=== PATIENT | male | born 1950 | race Caucasian/White ===

== ENCOUNTER 2020-03-26 16:00 | Emergency (ER) | payer OTHER, MEDICARE ==
--- OUTSIDE RECORDS SUMMARY | 2020-03-26 16:01 | XMS REPORT | Continuity of Care Document ---
:1950 Author Organization [facility] t Address [address] [place] [address] Care Team Providers Name Role Phone Scar Javier MD Attending Clinician Yvon Cox MD Attending Clinician Payers Payer Name Policy Type Policy Number Effective Date Expiration Date S ource Problems This patient has no known problems. Allergies, Adverse Reactions, Alerts Allergy Allergy Status Severity Reaction(s) Onset Inactive Treating Comm ents Source Name Type Date Date Clinician No Known DA Active [facility]ie 10-26 [place] s 00:[facility] Medications This patient has no known medications. Procedures This patient has no known procedures. Encounters Start End Encounter Admission Attending Care Care Encounter Source Date/Time Date/Time Type Type Clinicians Facility Department ID 2019-11-09 2019-11-09 Office TANESHA Javier [id number] 08:14:15 08:58:27 Visit Austen Rojas [id number] Scar Fung [id number] Renee [id number] [address] 2019-07-23 2019-07-23 Office PUSHPA Cox [id number] 08:33:16 09:33:08 Visit Mike Sanz AMBULATOR [id number] Y [id number] Results Test Description Test Time Test Comments Results Result [facility] e Comments - CT ABD PELVIS W 2019-12-17 Patient Name: WO CONT 07:59:00 BRIAN VELAZQUEZ Unit No: [id number] EXAMS: CPT CODE: [id number] CT ABD PELVIS W WO CONT 16135 EXAM: CT ABDOMEN AND PELVIS WITH AND WITHOUT CONTRAST INDICATION: CYST OF KIDNEYS LOCATION: A1 COMPARISON: None TECHNIQUE: CT of the abdomen and pelvis was performed with 90 mL Isovue-370 intravenous contrast. Patient's GFR is greater than 60 with a creatinine of 0.9. All CT scans are performed using radiation dose reduction technique. Technical factors are evaluated and adjusted to insure appropriate moderation of exposure. Automated dose management technology is applied to adjust the radiation dose to minimize exposure while achieving a diagnostic quality image. FINDINGS: Thoracic: Included images of the lower chest demonstrate no abnormalities. Hepatobiliary: No focal liver lesion is identified. No intrahepatic or extrahepatic biliary dilatation is seen. The main portal vein is patent. Gallbladder: The gallbladder is normal. Pancreas: Unremarkable. Spleen: Unremarkable. Adrenals: Unremarkable. Kidneys: There is no evidence of renal calculus. There is no evidence of hydronephrosis of either kidney. Multiple surgical clips are noted at the left renal hilum. A simple cyst seen at the upper pole of the left kidney measuring 1.6 cm. At the upper pole the right kidney there is a cystic lesion which measures 1.6 cm and demonstrates irregular thick calcifications. This lesion shows no measurable enhancement. No additional renal lesions are identified. No filling defects are identified in the renal collecting systems or ureters. Bladder/Reproductive system: Evaluation of the bladder is limited, but no obvious bladder abnormality is present. Coarse calcifications are noted within the prostate. Gastrointestinal: No bowel obstruction or perienteric inflammation. The appendix is normal. Vascular: Atherosclerotic calcifications are seen within the aorta and branch vessels. Name: BRIAN VELAZQUEZ [facility] Phys: Mojgan Ortiz [address] : 1950 Age: 69 Sex: [place] [id number] Loc: [place].TCTS Exam Date: 12/17/2019 Status: REG CLI PH: FAX: PAGE 1 Signed Report (CONTINUED) Patient Name: BRIAN VELAZQUEZ Unit No: [id number] EXAMS: CPT CODE: [id number] CT ABD PELVIS W WO CONT 28625 <Continued> Lymphatics: No enlarged lymph nodes by CT size criteria. Bones/Soft Tissues: No acute osseous findings. No ventral hernias. Peritoneum/Other: No extraluminal air. No extraluminal fluid. IMPRESSION: 1. Cystic lesion at the upper pole the right kidney measuring 1.6 cm with thick irregular calcifications, but no measurable enhancement (Bosniak 2F). Recommend follow-up CT or MRI abdomen in 6 months to assess for any interval growth. 2. Simple cyst at the upper pole the left kidney. (Bosniak 1) at 0759 Reported and signed by: Linda Sutherland M.D. CC: Technologist: Hope Abraham CTDI: 57.29 DLP: 2357.9 Trscr Dt/Tm: 12/17/2019 (0759) by:[email or web address] Electronic Signature Date/Time: 12/17/2019 (075)Orig Print D/T: S: 12/17/2019 (08) Name: BRIAN VELAZQUEZ [facility] Phys: SATKU - Sathyamoorthy,Kumaran [address] : 1950 Age: 69 Sex: [place] [address] Loc: [place].TCTS Exam Date: 12/17/2019 Status: REG CLI PH: FAX: PAGE 2 Signed Report - CT ANGIO CHEST 2019-10-27 Patient Name: 14:24:00 BRIAN VELAZQUEZ Unit No: [id number] EXAMS: CPT CODE: [id number] CT ANGIO CHEST [address]11 CLINICAL HISTORY: TAA. LOCATION: A1 FINDINGS: Following the administration of 90 mL Isovue-370 intravenous contrast, multislice axial images are obtained through the chest during the arterial phase per angiography protocol. Precontrast images are also obtained. Coronal and sagittal reconstructed images are obtained and are used in interpretation. In addition, 3-D reformatted images are performed at the console and used in interpretation. Creatinine is 0.9. GFR is greater than 40. Comparison is made with prior CTA chest without and with contrast dated March 30, 2011 and CTA aorta dated May 05, 2010. Aneurysmal dilatation of the ascending thoracic aorta measuring 4.4 cm AP diameter may be slightly increased in size from the prior study of 2009 (previously measured 4.2 cm). There is mild calcification of the thoracic aorta. No dissection. There is no significant mediastinal adenopathy. There is focal moderate calcification of the left anterior descending coronary artery. Small calcifications within the liver and spleen are consistent with old granulomatous disease. Numerous surgical clips are noted in the region of the left kidney. The kidneys are not completely included on this study. There is a 1.8 cm Bosniak type I cyst at the superior pole left kidney. 1.8 cm cystic lesion at the superior pole right kidney demonstrates thick wall calcification without enhancement. This is smaller compared to the prior studies with new calcification. This is a Bosniak type II F lesion. There is a new 9 mm presumed cyst at the midpole right kidney. No acute skeletal or soft tissue abnormalities. There is mild calcified plaque at the chest apices as well as mild parenchymal scarring at the lung apices. There are no pleural effusions. IMPRESSION: 1. Aneurysmal dilatation of the ascending thoracic aorta measuring 4.4 cm AP diameter may be slightly increased in size from the prior study of 2009 (previously measured 4.2 cm). 2. There is a 1.8 cm Bosniak type II F lesion at the superior pole right kidney. Follow-up CT abdomen without and with contrast in 6 months is recommended. 3. Other benign findings. This exam was performed according to our departmental dose-optimization program, which includes automated exposure control, adjustment of the mA and/or kV according to patient size and/or use of iterative reconstruction technique Name: BRIAN VELAZQUEZ [facility] Phys: [place] [address] : 1950 Age: 69 Sex: [place] [address] Loc: [place].CTSII Exam Date: 10/27/2019 Status: REG CLI PH: FAX: PAGE 1 Signed Report (CONTINUED) Patient Name: BRIAN VELAZQUEZ Unit No: [id number] EXAMS: CPT CODE: [id number] CT ANGIO CHEST 76162 <Continued> at 1424 Reported and signed by: Eric Denney MD CC: No Primary or Family Physician; Ayan Fletcher MD Technologist: Nubia Gonsalves CTDI: 17.48 DLP: 1409.0 Trscr Dt/Tm: 10/27/2019 (1424) by:[email or web address] Electronic Signature Date/Time: 10/27/2019 (142)Orig Print D/T: S: 10/27/2019 (1429) Name: BRIAN VELAZQUEZ [facility] Phys: [place] [address] : 1950 Age: 69 [place]: [place] [id number] Loc: [place].CTSII Exam Date: 10/27/2019 Status: REG CLI PH: FAX: PAGE 2 Signed Report CREATININE POC 2019-10-27 13:06:00 Test Item Value Reference Range Interpretation Comme nts CREATININE POC (test code = CREATP) 0.9 mg/dL 0.6-1.3 N
--- NOTE | 2020-03-26 17:38 | RAD REPORT ---
EXAM DESCRIPTION: RAD - Ankle Left 3 View -03/26/2020 5:23 pm CLINICAL HISTORY: Left ankle pain status post injury FINDINGS: No fracture or dislocation is seen.
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
--- NOTE | 2020-03-26 17:47 | RAD REPORT ---
EXAM DESCRIPTION: Uvaldo Harley Left03/26/2020 5:08 pm CLINICAL HISTORY: Left leg pain status post injury FINDINGS: No fracture is seen
[2020-03-26] MEDS ORDERED: ACETAMINOPHEN 500 MG TAB ONE (17:49)
[2020-03-26] MEDS ORDERED: HYDROCODONE/APAP 7.5/325 MG TAB ONE (17:53)
[2020-03-26 20:10] VITALS: BP 148/99; TEMP 98.5; O2SAT 99
== END 2020-03-26 19:46 | disposition home or self-care (01) ==
LOC: ER 16:00
PROC: 2W3RX1Z Immobilization of Left Lower Leg using Splint (ICD-10-PCS; principal; 2020-03-26)
DX: S82.425A Nondisplaced transverse fracture of shaft of left fibula, initial encounter for closed fracture (principal); V29.40XA Motorcycle driver injured in collision with unspecified motor vehicles in traffic accident, initial encounter; I10 Essential (primary) hypertension
CPT/HCPCS: 99284

== ENCOUNTER 2021-12-08 10:13 | Emergency (ER) | payer OTHER ==
[2021-12-08 11:44] LABS: Absolute Lymphocytes (CBC) 0.7 K/uL (0.7-4.9); Hematocrit 41.9 % (39.6-49.0); Lymphocytes % 13.6 % (15.3-44.8); MCV 89.9 fL (80-100); MPV 8.3 fL (7.6-11.3); RBC Red Blood Cell Count 4.66 M/uL (4.33-5.43)
[2021-12-08] MEDS ORDERED: ACETAMINOPHEN 500 MG TAB ONE (11:48)
--- NOTE | 2021-12-08 11:48 | RAD REPORT ---
EXAM DESCRIPTION: RAD - Chest Pa And Lat (2 Views) - 12/08/2021 11:06 am CLINICAL HISTORY: COUGH COMPARISON: None TECHNIQUE: Frontal and lateral views of the chest were obtained. FINDINGS: The lungs are clear. Mildly prominent interstitial pattern is believed be baseline. No hi la mass or lymphadenopathy identifiable. Heart size is normal and central vasculature is within anabella l limits. No pleural effusion or pneumothorax seen. No acute bony finding noted. No aortic abnorma lity. IMPRESSION: No acute cardiopulmonary process.
[2021-12-08] MEDS ORDERED: NA CHLORIDE 0.9% 1,000 ML ONE (11:49)
[2021-12-08 12:04] LABS: Bilirubin Total 1.2 mg/dL (0.2-1.0); Potassium 3.7 mmol/L (3.5-5.1); Protein, Total 7.3 g/dL (6.4-8.2); Troponin High Sensitivity 28.3 pg/mL (<58.9)
[2021-12-08] MEDS ORDERED: AZITHROMYCIN 250 MG TAB ONE (12:20)
--- NOTE | 2021-12-08 12:39 | ER ---
Nurse's Notes [facility] Name: Lan Bailon Age: 71 yrs Sex: Male : 1950 Arrival Date: 12/08/2021 Time: 10:16 Bed 12 Private MD: Robyn Martines C Diagnosis: Fever, unspecified;Acute upper respiratory infection, unspecified;Coronavirus infection, unspecified;SARS-associated coronavirus as the cause of diseases classified elsewhere Presentation: 12/08 10:36 Chief complaint: Patient states: very dizzy and ,y head is spinning , general weakness iw X 2 days. Coronavirus screen: Client presents with at least one sign or symptom that may indicate coronavirus-19. Ebola Screen: Patient negative for fever greater than or equal to 101.5 degrees Fahrenheit, and additional compatible Ebola Virus Disease symptoms Patient denies exposure to infectious person. Patient denies travel to an Ebola-affected area in the 21 days before illness onset. No symptoms or risks identified at this time. Initial Sepsis Screen: Does the patient meet any 2 criteria? No. Patient's initial sepsis screen is negative. Does the patient have a suspected source of infection? No. Patient's initial sepsis screen is negative. Risk Assessment: Do you want to hurt yourself or someone else? Patient reports no desire to harm self or others. Onset of symptoms was December 05, 2021. 10:36 Method Of Arrival: Ambulatory iw 10:36 Acuity: CRISTINE 3 iw Historical: - Allergies: 10:37 No Known Allergies; iw - PMHx: 10:37 aortic aneurysm; Hypertension; iw - Immunization history:: Client reports having NOT received the Covid vaccine. - Social history:: Smoking status: Patient denies any tobacco usage or history of. - Family history:: not pertinent. Screenin:47 Abuse screen: Denies threats or abuse. Denies injuries from another. Nutritional iw screening: No deficits noted. Tuberculosis screening: No symptoms or risk factors identified. Fall Risk IV access (20 points). Assessment: 11:46 General: Appears in no apparent distress. Behavior is calm, cooperative. General: iw Reports chills for feeling ill for fatigue for. Pain: Complains of pain in b brian aches. Neuro: Level of Consciousness is awake, alert, obeys commands, Oriented to person, place, time, situation, Reports dizziness. Respiratory: Respiratory effort is even, unlabored, Respiratory pattern is regular. Vital Signs: 10:36 BP 106 / 68; Pulse 77; Resp 16; Temp 100.6; Pulse Ox 96% on R/A; iw 11:47 BP 103 / 68; Pulse 64; Resp 16; Pulse Ox 97% on R/A; iw ED Course: 10:16 Patient arrived in ED. mr 10:16 Robyn Martines MD is Private Physician. mr 10:37 Triage completed. iw 10:37 Arm band placed on. iw 10:42 Geronimo Saha MD is Attending Physician. [facility] 10:55 Anju Lee, RN is Primary Nurse. iw 11:08 Chest Pa And Lat (2 Views) XRAY In Process Unspecified. EDMS 11:47 No provider procedures requiring assistance completed. Inserted saline lock: 20 gauge iw in left antecubital area, using aseptic technique. 11:50 Patient has correct armband on for positive identification. iw 11:55 EKG done, by ED staff, reviewed by Geronimo Saha MD. mb7 12:37 Robyn Martines MD is Referral Physician. [place] Administered Medications: 11:46 Drug: NS 0.9% 1000 ml Route: IV; Rate: 1 bolus; Site: left antecubital; iw 13:00 Follow up: IV Status: Completed infusion iw 11:46 Drug: Tylenol 1000 mg Route: PO; iw 12:15 Follow up: Response: No adverse reaction iw 12:18 Drug: Zithromax (azithromycin) 500 mg Route: PO; iw 12:30 Follow up: Response: No adverse reaction iw Medication: 11:50 VIS not applicable for this client. iw Outcome: 12:38 Discharge ordered by . [facility] 13:30 Discharged to home ambulatory, with family. iw 13:30 Condition: good 13:30 Discharge instructions given to patient, Instructed on discharge instructions, follow up and referral plans. medication usage, Demonstrated understanding of instructions, follow-up care, medications, Prescriptions given X 3. 13:31 Patient left the ED. iw Signatures: Dispatcher [employer] EDMS Geronimo Saha MD MD cha Rivera, Mary mr Anju Lee, RN RN Kalpana Hassan mb7
--- NOTE | 2021-12-08 12:39 | EDPHYS ---
Physician Documentation [facility] Name: Lan Bailon Age: 71 yrs Sex: Male : 1950 Arrival Date: 12/08/2021 Time: 10:16 Bed 12 Private MD: Robyn Martines C ED Physician Geronimo Saha HPI: 12/08 11:32 This 71 yrs old Male presents to ER via Ambulatory with complaints of Flu [place]sea Symptoms. 11:32 This 71 yrs old Male presents to ER via Ambulatory with complaints of Flu [place] Symptoms. 11:32 The patient has shortness of breath at rest, with light activity. Onset: The [place] symptoms/episode began/occurred 1 day(s) ago. Duration: The symptoms are continuous, and are steadily getting worse. The patient's shortness of breath is aggravated by nothing, is alleviated by nothing. The patient or guardian reports cough, that is intermittent, described as mild, difficulty breathing, flu symptoms, arthralgias, low-grade fever, myalgias. Modifying factors: The symptoms are alleviated by nothing. the symptoms are aggravated by activity. Associated signs and symptoms: Pertinent positives: non-productive cough, dizziness. Severity of symptoms: At their worst the symptoms were mild in the emergency department the symptoms are unchanged. Associated signs and symptoms: Pertinent positives: fever, nausea, rhinorrhea, sore throat. Historical: - Allergies: 10:37 No Known Allergies; iw - PMHx: 10:37 aortic aneurysm; Hypertension; iw - Immunization history:: Client reports having NOT received the Covid vaccine. - Social history:: Smoking status: Patient denies any tobacco usage or history of. - Family history:: not pertinent. ROS: 11:32 Eyes: Negative for injury, pain, redness, and discharge, ENT: Negative for injury, chelsea pain, and discharge, Neck: Negative for injury, pain, and swelling, Cardiovascular: Negative for chest pain, palpitations, and edema, Abdomen/GI: Negative for abdominal pain, nausea, vomiting, diarrhea, and constipation, Back: Negative for injury and pain, : Negative for injury, bleeding, discharge, and swelling, MS/Extremity: Negative for injury and deformity, Skin: Negative for injury, rash, and discoloration, Neuro: Negative for headache, weakness, numbness, tingling, and seizure, Psych: Negative for depression, anxiety, suicide ideation, homicidal ideation, and hallucinations, Allergy/Immunology: Negative for hives, rash, and allergies, Endocrine: Negative for neck swelling, polydipsia, polyuria, polyphagia, and marked weight changes, Hematologic/Lymphatic: Negative for swollen nodes, abnormal bleeding, and unusual bruising. 11:32 Constitutional: Positive for body aches, chills, fatigue, fever. 11:32 Respiratory: Positive for cough, "sounds productive". Exam: 11:32 Head/Face: Normocephalic, atraumatic. Eyes: Pupils equal round and reactive to light, che[place]sea extra-ocular motions intact. Lids and lashes normal. Conjunctiva and sclera are non-icteric and not injected. Cornea within normal limits. Periorbital areas with no swelling, redness, or edema. ENT: Nares patent. No nasal discharge, no septal abnormalities noted. Tympanic membranes are normal and external auditory canals are clear. Oropharynx with no redness, swelling, or masses, exudates, or evidence of obstruction, uvula midline. Mucous membranes moist. Neck: Trachea midline, no thyromegaly or masses palpated, and no cervical lymphadenopathy. Supple, full range of motion without nuchal rigidity, or vertebral point tenderness. No Meningismus. Chest/axilla: Normal chest wall appearance and motion. Nontender with no deformity. No lesions are appreciated. Cardiovascular: Regular rate and rhythm with a normal S1 and S2. No gallops, murmurs, or rubs. Normal PMI, no JVD. No pulse deficits. Respiratory: Lungs have equal breath sounds bilaterally, clear to auscultation and percussion. No rales, rhonchi or wheezes noted. No increased work of breathing, no retractions or nasal flaring. Abdomen/GI: Soft, non-tender, with normal bowel sounds. No distension or tympany. No guarding or rebound. No evidence of tenderness throughout. Back: No spinal tenderness. No costovertebral tenderness. Full range of motion. Skin: Warm, dry with normal turgor. Normal color with no rashes, no lesions, and no evidence of cellulitis. MS/ Extremity: Pulses equal, no cyanosis. Neurovascular intact. Full, normal range of motion. Neuro: Awake and alert, GCS 15, oriented to person, place, time, and situation. Cranial nerves II-XII grossly intact. Motor strength 5/5 in all extremities. Sensory grossly intact. Cerebellar exam normal. Normal gait. Psych: Awake, alert, with orientation to person, place and time. Behavior, mood, and affect are within normal limits. 11:32 Cardiovascular: Rate: normal, Rhythm: regular, Pulses: Pulses are 4+ in bilateral radial, brachial, femoral, popliteal, posterior tibial and and dorsalis pedis arteries.. Heart sounds: normal, normal S1and S2, no S3 or S4, no murmur, no rub, no gallop, Edema: is not appreciated, JVD: is not appreciated. 11:45 ECG was reviewed by the Attending Physician. [facility] Vital Signs: 10:36 BP 106 / 68; Pulse 77; Resp 16; Temp 100.6; Pulse Ox 96% on R/A; iw 11:47 BP 103 / 68; Pulse 64; Resp 16; Pulse Ox 97% on R/A; iw MDM: 10:42 Patient medically screened. [facility] 11:32 Differential diagnosis: Bronchitis bronchitis, flu, URI. Antibiotic administration: The [facility] patient is discharged and will get outpatient antibiotics, Zithromax. The patient's Wells Deep Vein Thrombosis Score was calculated as follows: Total Score: 0-2 Pts- Low Risk. The patient's pulmonary embolism risk score was calculated as follows: Total Score: 0-2 points. This patient was found to be at low risk for a pulmonary embolism by using the Well's assessment criteria. Immunization status: Pneumococcal vaccine: Influenza vaccine: Not up to date. Data reviewed: vital signs, nurses notes, lab test result(s), EKG, radiologic studies, plain films. Data interpreted: assembly repairer: rate is 77 beats/min, rhythm is regular, Pulse oximetry: on room air is 96 %. Test interpretation: by ED physician or midlevel provider: ECG, plain radiologic studies. Counseling: I had a detailed discussion with the patient and/or guardian regarding: the historical points, exam findings, and any diagnostic results supporting the discharge/admit diagnosis, lab results, radiology results. 12/08 10:44 Order name: CBC with Diff [facility] 12/08 10:44 Order name: Comprehensive Metabolic Panel; Complete Time: 12:15 [facility] 12/08 10:44 Order name: Troponin High Sensitivity; Complete Time: 12:15 [facility] 12/08 10:44 Order name: Flu; Complete Time: 12:15 [facility] 12/08 10:44 Order name: SARS-COV-2 RT PCR (Document "Date of Onset" if Symptomatic); Complete Time: [facility] 12:12/08 11:55 Order name: Manual Differential EDMS 12/08 10:44 Order name: Urine Dipstick-Ancillary (obtain specimen) [facility] 12/08 10:44 Order name: EKG; Complete Time: 10:45 [facility] 12/08 10:44 Order name: Chest Pa And Lat (2 Views) XRAY; Complete Time: 12:15 [facility] 12/08 10:44 Order name: EKG - Nurse/Tech; Complete Time: 11:55 [facility] EC:45 Rate is 72 beats/min. Rhythm is regular. QRS [place] is Normal. [place] interval is normal. QRS [place] interval is normal. QT interval is normal. No Q waves. T waves are Normal. No ST changes noted. Clinical impression: NSR w/ Non-specific ST/T Changes and No evidence of ischemia. Interpreted by me. Reviewed by me. Administered Medications: 11:46 Drug: NS 0.9% 1000 ml Route: IV; Rate: 1 bolus; Site: left antecubital; iw 13:00 Follow up: IV Status: Completed infusion iw 11:46 Drug: Tylenol 1000 mg Route: PO; iw 12:15 Follow up: Response: No adverse reaction iw 12:18 Drug: Zithromax (azithromycin) 500 mg Route: PO; iw 12:30 Follow up: Response: No adverse reaction iw Disposition Summary: 12/08/21 12:38 Discharge Ordered Location: Home [facility] Problem: new chel[place] Symptoms: have improved che[place]sea Condition: Stable [place] Diagnosis - Fever, unspecified [place] - Acute upper respiratory infection, unspecified [place] - Coronavirus infection, unspecified [place] - SARS-associated coronavirus as the cause of diseases classified elsewhere [place] Followup: [place] - With: - When: 2 - 3 days - Reason: Recheck today's complaints, Continuance of care, Re-evaluation by your physician Discharge Instructions: - Discharge Summary Sheet che[place] - Fever, Adult [place]sea - Upper Respiratory Infection, Adult [place] - Cool Mist Vaporizer [place] - Upper Respiratory Infection, Adult, [id number] [place] - Aspirin and Your Heart [place] - Cough, Adult [place] - COVID-19 [place] - COVID-19 Frequently Asked Questions [place] - Things to Know about the COVID-19 Pandemic - [facility] - 10 Things You Can Do to Manage Your COVID-19 Symptoms at Home - [facility] - COVID-19: Quarantine vs. Isolation - [facility] - Prevent the Spread of COVID-19 if You Are Sick - [facility] Forms: - Medication Reconciliation Form [place] - Thank You Letter [place] - Antibiotic Education [place] - Prescription Opioid Use [facility] Prescriptions: - Pepcid 20 mg Oral Tablet - take 1 tablet by ORAL route every 12 hours for 30 days; 60 tablet; Refills: 0, [place] Product Selection Permitted - Zithromax Z-Sukhjinder 250 mg Oral Tablet - take 1 tablet by ORAL route as directed for 5 days Day 1 - take two (2) tablets [place] one time. Day 2, 3, 4 , 5 take one (1) tablet once daily.; 6 tablet; Refills: 0, Product Selection Permitted Signatures: Dispatcher [employer] Geronimo Stahl MD MD cha Williams, Irene, RN RN iw
[2021-12-08 12:52] LABS: Blood Morphology Comment NOT SEEN (NOT SEEN); Platelet Estimate ADEQ
[2021-12-08] MEDS ORDERED: ASPIRIN 81 MG CHEWABLE TABLET ONE (12:57)
[2021-12-08] MEDS ORDERED: FAMOTIDINE 20 MG TAB ONE (12:57)
[2021-12-08 13:38] VITALS: TEMP 100.6
[2021-12-08 13:45] VITALS: BP 103/68; O2SAT 97
--- NOTE | 2021-12-10 14:43 | EKG ---
Test Date: 2021-12-08 Test Time: 11:29:53 Mica Machine Operator: MB MEASUREMENT RESULTS: Intervals: Rate: 72 IL: 156 QRSD: 132 QT: 392 QTc: 429 Bend: P: 65 IL: 156 QRS: 55 T: 32 INTERPRETIVE STATEMENTS: Normal sinus rhythm Right bundle branch block Possible Lateral infarct, age undetermined Abnormal ECG Compared to ECG 06/12/2006 09:42:24 Right bundle-branch block now present Myocardial infarct finding now present Sinus bradycardia no longer present Electronically Signed On 12-10-21 14:41:21 CDT by Mitesh Collier
== END 2021-12-08 13:31 | disposition home or self-care (01) ==
LOC: ER 10:13
DX: U07.1 COVID-19 (principal); J06.9 Acute upper respiratory infection, unspecified; I10 Essential (primary) hypertension
CPT/HCPCS: 93005; 85025; 36415; 84484; 80053; 87804 ×2; 71046; 96360; 99284; U0003; J7030

== ENCOUNTER 2024-05-01 06:24 | Day surgery (SDC) | payer OTHER ==
--- NOTE | 2024-04-29 10:15 | RAD REPORT ---
EXAMINATION: TWO VIEW CHEST XR CLINICAL INDICATION: Male, 74 years old. [facility] pre op for day surgery. Hypertension TECHNIQUE: 2 view radiographs of the chest were performed. COMPARISON: 12/08/2021 FINDINGS: The lungs are well inflated and clear. No pneumothorax or sizable effusion. The heart is normal in si ze. Mediastinal contours are unremarkable. IMPRESSION: No acute or significant abnormalities.
[2024-04-29 10:52] LABS: Absolute Eosinophils 0.1 K/uL (0-0.5); Absolute Lymphocytes (CBC) 1.5 K/uL (0.7-4.9); Absolute Monocytes 0.5 K/uL (0.1-1.3); Absolute Neutrophil 4.7 K/uL (1.8-8.0); Basophils % 0.2 % (0-1.3); Eosinophils % 1.2 % (0-4.4); Hematocrit 45.5 % (39.6-49.0); Hemoglobin 15.1 g/dL (13.6-17.9); Lymphocytes % 22.7 % (15.3-44.8); MCH 30.4 pg (27.0-35.0); MCHC 33.3 g/dL (32.0-36.0); MCV 91.3 fL (80-100); MPV 8.4 fL (7.6-11.3); Monocytes % 7.3 % (3.3-12.3); Neutrophils % 68.6 % (41.7-73.7); Nucleated Red Blood Cells % 0.1 % (0-0); Platelets 214 thou/uL (152-406); RBC Red Blood Cell Count 4.98 M/uL (4.33-5.43)
[2024-04-29 11:17] LABS: Potassium 4.5 mEq/L (3.5-5.1)
[2024-04-29 11:18] LABS: Anion Gap 7.5 mEq/L (5.0-15.0)
[2024-05-01] MEDS ORDERED: BUPIVACAINE 0.5% PF 10 ML VIAL ONE (06:47)
[2024-05-01] MEDS ORDERED: CEFAZOLIN SODIUM 2 GM/VIAL ONE (06:48)
[2024-05-01] MEDS: Ringers Lactate 1,000 ML IV ONE (06:50)
[2024-05-01] MEDS ORDERED: propofoL 200 MG/20 ML VIAL IV ONE (07:00)
[2024-05-01] MEDS ORDERED: KETOROLAC 30 MG/ML INJ ONE (07:00)
[2024-05-01] MEDS ORDERED: MIDAZOLAM HCL 2 MG/2 ML INJ ONE (07:00)
[2024-05-01] MEDS: BUPIVACAINE 0.5% PF 10 ML VIAL SQ ONE (07:00)
[2024-05-01] MEDS ORDERED: LIDOCAINE 1% MPF 5 ML VIAL ONE (07:00)
[2024-05-01] MEDS ORDERED: FENTANYL CITR 100 MCG/2 ML ONE (07:00)
[2024-05-01] MEDS ORDERED: ROCURONIUM 50 MG/5 ML VIAL IV ONE ×2 (07:01→08:20)
[2024-05-01] MEDS ORDERED: EPINEPHRINE 1 MG/ML VIAL ONE (07:41)
[2024-05-01] MEDS ORDERED: GLYCOPYRROLATE 0.2 MG/ML SYR ONE ×3 (07:43→08:34)
[2024-05-01] MEDS: CEFAZOLIN SODIUM 2 GM/VIAL IVPB ONE (07:44)
[2024-05-01] MEDS ORDERED: NEOSTIGMINE 1 MG/ML -10 ML VIAL ONE (08:34)
--- NOTE | 2024-05-01 08:56 | P.OP ---
Date of Service: 05/01/24 Preop diagnosis: Bilateral inguinal hernia Postop diagnosis: Same Procedure performed: Repair of left inguinal hernia, exploration of right groin Surgeon: Maurisio Salcedo MD Truck Dock Material Mover: Lynda CASTANO Estimated blood loss: Minimal Specimen: Cord lipoma Findings: A left indirect inguinal hernia was present with a large cord lipoma, on the right side there was no hernia identified just patulous tissue Anesthesia: General Complications: None Drains: None Fluids and blood products: Nonapplicable Disposition: Recovery room Operative note: Patient brought to the OR and placed in supine position. General anesthesia began. Patient prepped and draped in the usual sterile fashion. Marcaine 0.5% infiltrated in a field block fashion. 15 blade used to make a 4 cm incision between the left pubic tubercle and the anterior iliac superior spine. Subcutaneous tissue divided. Bleeding controlled cautery. Hannah's fascia identified and divided. Aponeurosis of the external abdominal oblique muscle identified. The inferior edge of the aponeurosis was dissected to expose the shelving edge. The aponeurosis was opened through the external ring. Ilioinguinal nerve identified and retracted out of the field of dissection. Cord mobilized at the pubic tubercle. A large cord lipoma identified. The base of the cord lipoma was hernia sac which was wide based and was reduced back into the peritoneal cavity. The cord lipoma was excised base was tied off with 2-0 chromic tie. A large Marlex mesh plug was placed in the internal ring and secured with a absorbable tacker. Onlay mesh was placed in the inguinal floor and secured medially to the pubic tubercle, superior to the conjoined tendon, inferiorly to the shelving edge and laterally to each other. Cord structures and ilioinguinal nerve placed back in anatomic location. 2-0 Prolene used to close the aponeurosis. 3-0 chromic used to close Hannah's fascia and close skin as well. Sterile dressing applied. On the right side similar operation took place at the beginning. Once the inguinal floor and cord structures were identified there, was no evidence of recurrent hernia. There was some patulous tissue which gave the appearance of a clinical hernia. This CAT scan done in February was reviewed with the radiologist to make sure and there was no radiographic evidence of a hernia present. At this time Hannah's fascia was closed with 3-0 chromic. The skin was closed with 3-0 chromic as well. Sterile dressing applied. Patient awakened and taken to recovery room in good general condition. CC: Dr. Martines's office
[2024-05-01 09:17] VITALS: TEMP 97
[2024-05-01] MEDS: HYDROMORPHONE HCL 1 MG/ML INJ ONE (09:20)
[2024-05-01 09:34] VITALS: O2SAT 98
[2024-05-01 10:24] VITALS: BP 126/79
[2024-05-01] MEDS ORDERED: HYDROCODONE/APAP 7.5/325 MG TAB ONE (11:30)
[2024-05-01] MEDS: HYDROCODONE/APAP 7.5/325 MG TAB PO PRN (11:32)
== END 2024-05-01 12:50 | disposition home or self-care (01) ==
LOC: OR 06:24
PROVIDERS: ATTEND Surgery
PROC: 0YU60JZ Supplement Left Inguinal Region with Synthetic Substitute, Open Approach (ICD-10-PCS; principal; 2024-05-01 07:24)
DX: K40.90 Unilateral inguinal hernia, without obstruction or gangrene, not specified as recurrent (principal)
CPT/HCPCS: 85025; 80048; 36415; 88302; 71046; 49505; J2704; J2710; J2003; J2250; J3010; J0171; J1171; J7120